=== PATIENT | female | born 1990 | race Caucasian/White ===

== ENCOUNTER → 2017-09-06 13:01 | Outpatient (CLI) | payer OTHER, SELFPAY ==
--- NOTE | 2017-09-06 | CER_PTH ---
PATIENT: [facility]AL [id number] AGE/SX: 34/F ROOM: RE09/06/[address]: Dr. Emani Lind MD : 1990 BED: DIS: SPEC #: [id number] RECD: 09/06/17 14:46 STATUS: CLIFFORD REQ #: [id number] LINDA: 09/06/17 00:[address]: Emani Oneal DEPT: SURGICAL PATHOLOGY RECD BY: Lincoln Ortiz ENTERED: 09/06/17 14:46 SP TYPE: CERV OTHR DR: Dr. Reed Sierra MD Tissues: Uterine cervix, NOS Procedures: Surgery Specimen Level IV Comments: @ Originally on account #[id number] Req #[id number] HEADER OPERATION: ECC PRE-OP DIAGNOSIS: MARVA III S/P LEEP, positive margins 04/2017 TISSUE SUBMITTED: ECC MICROSCOPIC DIAGNOSIS Endocervix, curettings: Detached fragments of squamous mucosa with focal changes suspicious for HPV cytopathic effect. AM:jamey 09/07/17 COMMENT Results from immunohistochemistry ([id number]) for surrogate HPV marker (p16) will be reported separately. MICROSCOPIC DESCRIPTION Slides are reviewed. GROSS DESCRIPTION Received in fixative is one container labeled with the patient's name and designated ECC. The specimen consists of multiple irregular fragments of banuelos mucoid tissue that in aggregate measure 1 x 0.2 x 0.1 cm. The specimen is totally submitted in one cassette. / SJ:jamey 09/06/17 TC:5 CPT: 25479
--- NOTE | 2017-09-06 | IMM_PTH ---
PATIENT: ANISH PASCAL LOC: [facility] U#:[id number] AGE/SX: 34/F ROOM: RE09/06/[address]: Dr. Emani Lind MD : 1990 BED: DIS: SPEC #: [id number] RECD: 09/07/17 10:38 STATUS: CLIFFORD REQ #: [id number] LINDA: 09/06/17 00:[address]: Emani Oneal DEPT: IMMUNOHISTOCHEMISTRY RECD BY: Summer Hamilton ENTERED: 09/07/17 10:39 SP TYPE: IMMUNO OTHR DR: Dr. Reed Sierra MD Tissues: Endocervical Procedures: p16 (initial) KI-67 (add) Comments: @ Originally on account #[id number] Req #[id number] PHYSICIAN & INSTITUTION [place] [id number] SPECIMEN INFORMATION: Tissue Source: [facility] Clinical Info: MARVA III status post LEEP Specimen Number: [id number] CPT code: 60475, 75939 METHODOLOGY: Deparaffinized sections of prefer/formalin-fixed tissue or PAP/DQ stained slides are incubated with monoclonal/polyclonal antibodies/oligonucleotide probes. Localization is made via biotin free immunoperoxidase method. Appropriate controls are performed and reacted as expected. Results on target cell population are indicated in the following table: RESULTS: ANTIBODY / CLONE RESULT P16 (E6H4) negative Ki-67 (30-9) positive, low, focal These tests were developed and their performance characteristics determined by [facility]. They may not have been cleared or approved by the U.S. Food and Drug Administration. The FDA has determined that such clearance or approval is not necessary. INTERPRETATION: ECC: Suspicious for focal HPV change. AM:jamey 09/07/17
[2017-09-11 11:33] LABS: HPV Reflexed? NOT INDICATED
== END ==
PROVIDERS: Visit Provider Obstetrics & Gynecology
DX: Z12.4 Encounter for screening for malignant neoplasm of cervix (principal); Z87.410 Personal history of cervical dysplasia
CPT/HCPCS: 88175; 88305; 88341; 88342; G0145

== ENCOUNTER → 2017-09-21 10:12 | Outpatient (CLI) | payer OTHER, SELFPAY ==
[2017-09-21 11:24] LABS: Glucose 91 mg/dL (74-106)
== END ==
PROVIDERS: Family Provider Family Medicine; PCP Family Medicine; Visit Provider Obstetrics & Gynecology
DX: E74.39 Other disorders of intestinal carbohydrate absorption (principal); Z68.43 Body mass index [BMI] 50.0-59.9, adult
CPT/HCPCS: 36415; 82947; 83525

== ENCOUNTER → 2018-04-13 11:30 | Outpatient (CLI) | payer OTHER, SELFPAY ==
--- NOTE | 2018-04-13 | IMM_PTH ---
PATIENT: ANISH PASCAL LOC: [facility] U#:[id number] AGE/SX: 34/F ROOM: RE04/13/[address]: Dr. Emani Lind MD : 1990 BED: DIS: SPEC #: [id number] RECD: 04/14/18 13:52 STATUS: CLIFFORD REQ #: [id number] LINDA: 04/13/18 00:[address]: Emani Oneal DEPT: IMMUNOHISTOCHEMISTRY RECD BY: Summer Hamilton ENTERED: 04/14/18 13:53 SP TYPE: IMMUNO OTHR DR: Dr. Reed Sierra MD Tissues: Endocervical Procedures: p16 (initial) KI-67 (add) PHYSICIAN & INSTITUTION [place] [address] SPECIMEN INFORMATION: Tissue Source: [facility] Clinical Info: MARVA I, II and III Specimen Number: [id number] CPT code: 31686, 98420 METHODOLOGY: Deparaffinized sections of prefer/formalin-fixed tissue or PAP/DQ stained slides are incubated with monoclonal/polyclonal antibodies/oligonucleotide probes. Localization is made via biotin free immunoperoxidase method. Appropriate controls are performed and reacted as expected. Results on target cell population are indicated in the following table: RESULTS: ANTIBODY / CLONE RESULT P16 (E6H4) negative Ki-67 (30-9) negative These tests were developed and their performance characteristics determined by [facility]. They may not have been cleared or approved by the [place].S. Food and Drug Administration. The FDA has determined that such clearance or approval is not necessary. INTERPRETATION: ECC: Benign quamous mucosal tissue. No evidence of dysplasia. AM:jamey 04/17/18
--- NOTE | 2018-04-13 | CER_PTH ---
PATIENT: ANISH [facility]ASCAL [id number] AGE/SX: 34/F ROOM: RE04/13/[address]: Dr. Emani Lind MD : 1990 BED: DIS: SPEC #: [id number] RECD: 04/13/18 14:29 STATUS: CLIFFORD AVTAR #: [id number] LINDA: 04/13/18 00:[address]: Emani Oneal DEPT: SURGICAL PATHOLOGY RECD BY: Lincoln Ortiz ENTERED: 04/13/18 14:29 SP TYPE: CERV OTHR DR: Dr. Reed Sierra MD Tissues: Uterine cervix, NOS Procedures: Surgery Specimen Level IV HEADER OPERATION: ECC PRE-OP DIAGNOSIS: Colposcopy, MARVA I, II and III status post LEEP with positive margins TISSUE SUBMITTED: ECC MICROSCOPIC DIAGNOSIS Endocervix, curettings: Detached strips and fragments of superficial squamous mucosa. No evidence of dysplasia. AM:jamey 04/14/18 COMMENT Results from immunohistochemistry ([id number]) for surrogate HPV marker (p16) will be reported separately. MICROSCOPIC DESCRIPTION Slides are reviewed. GROSS DESCRIPTION Received in fixative is one container labeled with the patient's name and designated ECC. The specimen consists of multiple irregular fragments of light banuelos soft tissue that in aggregate measure 1 x 0.5 x <0.1 cm. The specimen is totally submitted in one cassette. / AM:jamey 04/13/18 TC:4 CPT: 49581
[2018-04-17 13:38] LABS: HPV Reflexed? NOT INDICATED
== END ==
PROVIDERS: Family Provider Family Medicine; PCP Family Medicine; Referring Provider Obstetrics & Gynecology; Visit Provider Obstetrics & Gynecology
DX: Z12.4 Encounter for screening for malignant neoplasm of cervix (principal); Z87.42 Personal history of other diseases of the female genital tract
CPT/HCPCS: 88175; 88305; 88341; 88342; G0145

== ENCOUNTER → 2019-04-17 13:35 | Outpatient (CLI) | payer OTHER, SELFPAY ==
[2019-04-20 15:58] LABS: HPV Reflexed? NOT INDICATED
== END ==
PROVIDERS: Visit Provider Obstetrics & Gynecology
DX: Z12.4 Encounter for screening for malignant neoplasm of cervix (principal)
CPT/HCPCS: 88175; G0145

== ENCOUNTER → 2019-08-23 | Outpatient (CLI) | payer OTHER, SELFPAY ==
[2019-08-23 15:22] LABS: Chlamydia Trachomatis by PCR Negative (Negative); Neisserai gonorrhoeae by PCR Negative (Negative); Probe Check PASS; Sample Adequacy Control PASS; Specimen Processing Control PASS
== END | disposition home or self-care (01) ==
LOC: LABSPEC 10:36
PROVIDERS: Visit Provider Obstetrics & Gynecology
DX: Z11.3 Encounter for screening for infections with a predominantly sexual mode of transmission (principal)
CPT/HCPCS: 87491; 87591

== ENCOUNTER → 2020-03-05 15:30 | Outpatient (CLI) | payer OTHER, SELFPAY ==
[2020-03-05 18:12] LABS: Hematocrit 45.2 % (37-47); Hemoglobin 14.1 g/dL (12.0-15.0); Mean Corp Hgb Conc 31.2 g/dL (32-36); Mean Corpuscular Hgb 28.3 pg (27.0-32.0); Mean Corpuscular Volume 90.6 fL (81-99); Mean Platelet Vol. 11.9 fl (6.2-12.0); Platelet Count 381 K/mm3 (150-450); RBC Distribution Width CV 14.4 % (11.6-14.6); RBC Distribution Width SD 47.3 fl (35.1-43.9); Red Blood Count 4.99 M/mm3 (4.2-5.4); White Blood Count 10.8 K/mm3 (4.4-11.0)
[2020-03-05 18:46] LABS: ALB/GLOB Ratio 0.8 RATIO (0.9-2.4); AST(SGOT) 21 U/L (15-37); Alanine Aminotransfer ALT/SGPT 44 U/L (13-56); Albumin, Serum 3.8 g/dL (3.2-5.0); Alkaline Phosphatase 133 U/L (45-117); Anion Gap 7 (5-15); BUN 8 mg/dL (7-18); BUN/Creat Ratio 10.6 RATIO (10-20); Calcium,Total 9.2 mg/dL (8.5-10.1); Chloride 107 mmol/L (98-107); Creatinine, Serum 0.76 mg/dL (0.55-1.02); EST Glomerular Filtration Rate 95 mL/min (>60); Est Glom Filt Rate - Afr Amer 115 mL/min (>60); Globulin 4.6 g/dL (2.2-4.2); Glucose 85 mg/dL (74-106); Luteinizing Hormone 8.4 mIU/mL; Potassium 3.8 mmol/L (3.5-5.1); Protein, Total 8.4 g/dL (6.4-8.2); Sodium Level 139 mmol/L (136-145); Thyroid Stim Hormone (TSH) 1.85 uIU/mL (0.358-3.74)
== END ==
PROVIDERS: PCP Family Medicine; Referring Provider Family Medicine; Visit Provider Family Medicine
DX: N92.6 Irregular menstruation, unspecified (principal); R73.01 Impaired fasting glucose
CPT/HCPCS: 36415; 80053; 83001; 83002; 84443; 85027

== ENCOUNTER → 2020-05-21 15:07 | Outpatient (CLI) | payer BC, SELFPAY ==
[2020-05-21 17:35] LABS: Hemoglobin A1c 5.7 % (3.8-5.6)
[2020-05-26 17:27] LABS: HPV APTIMA, High Risk Negative (Negative)
== END ==
PROVIDERS: PCP Family Medicine; Visit Provider Obstetrics & Gynecology
DX: R63.5 Abnormal weight gain (principal); Z12.4 Encounter for screening for malignant neoplasm of cervix
CPT/HCPCS: 36415; 83036; 87624; 88175; G0145

== ENCOUNTER → 2020-11-06 16:25 | Outpatient (CLI) | payer BC, SELFPAY ==
--- NOTE | 2020-11-06 16:30 | RAD_ITS ---
STUDY: X-RAY - ACUTE ABDOMINAL SERIES REASON FOR EXAM: Female, 30 years old. RUQ PAIN TECHNIQUE: Single view of the chest. Supine, 5 view(s) of the abdomen were obtained. COMPARISON: None. FINDINGS: The lungs are clear and expanded. Normal size heart. Normal mediastinum and [place]. Normal visualized pulmonary arteries. Normal visualized aortic arch and descending thoracic aorta. There is a non-specific bowel gas pattern. The soft tissue structures of the abdomen and pelvis are unremarkable. Normal visualized osseous structures. RAD/Abd Inc Decub and/or Erect IMPRESSION: Normal x-ray examination of the chest, abdomen, and pelvis. Electronically Signed: Kris García MD at 16:49 EDT , Service support ,
[2020-11-06 17:47] LABS: Absolute Lymphocyte Count 4.03 X10^3/uL (0.83-4.51); Absolute Neutrophil Count 5.4 X10^3/uL (2.0-7.7); Basophil# 0.06 X10^3/uL; Basophil% 0.6 % (0-1); Eosinophil# 0.26 X10^3/uL; Eosinophils% 2.5 % (0-5); Hematocrit 43.6 % (37-47); Hemoglobin 13.8 g/dL (12.0-15.0); Lymphocyte # 4.03 X10^3/ul (0.83-4.51); Lymphocyte % 39.5 % (19-41); Mean Corp Hgb Conc 31.7 g/dL (32-36); Mean Corpuscular Hgb 28.1 pg (27.0-32.0); Mean Corpuscular Volume 88.8 fL (81-99); Mean Platelet Vol. 11.9 fl (6.2-12.0); Monocyte# 0.44 X10^3/uL; Monocyte% 4.3 % (0-10); NRBC Flagged by Analyzer 0 % (0-5); Neutrophil # 5.39 X10^3/uL (2.7-7.7); Neutrophil % 52.9 % (47-70); Platelet Count 391 K/mm3 (150-450); RBC Distribution Width CV 14.6 % (11.6-14.6); RBC Distribution Width SD 47.5 fl (35.1-43.9); Red Blood Count 4.91 M/mm3 (4.2-5.4); White Blood Count 10.2 K/mm3 (4.4-11.0)
[2020-11-06 17:56] LABS: ALB/GLOB Ratio 0.8 RATIO (0.9-2.4); AST(SGOT) 15 U/L (15-37); Alanine Aminotransfer ALT/SGPT 35 U/L (13-56); Albumin, Serum 3.6 g/dL (3.2-5.0); Alkaline Phosphatase 114 U/L (45-117); Amylase 33 U/L (25-115); Anion Gap 6 (5-15); BUN 8 mg/dL (7-18); BUN/Creat Ratio 10.2 RATIO (10-20); Calcium,Total 9.3 mg/dL (8.5-10.1); Chloride 107 mmol/L (98-107); Creatinine, Serum 0.79 mg/dL (0.55-1.02); EST Glomerular Filtration Rate 91 mL/min (>60); Est Glom Filt Rate - Afr Amer 110 mL/min (>60); Globulin 4.4 g/dL (2.2-4.2); Glucose 102 mg/dL (74-106); Lipase 72 U/L (73-393); Potassium 3.6 mmol/L (3.5-5.1); Sodium Level 140 mmol/L (136-145)
[2020-11-06 18:00] LABS: Erythrocyte Sedimentation Rate 39 mm/hr (0-30)
[2020-11-08 15:13] LABS: HCG BETA-SUBUNIT QUANT. < 1 mIU/mL (.)
== END ==
PROVIDERS: PCP Family Medicine; Referring Provider Family Medicine; Visit Provider Family Medicine
DX: R10.11 Right upper quadrant pain (principal)
CPT/HCPCS: 74019; 80053; 82150; 83690; 84702; 85025; 85652

== ENCOUNTER → 2020-12-17 09:04 | Outpatient (CLI) | payer BC, SELFPAY ==
--- NOTE | 2020-12-17 09:48 | CT_ITS ---
STUDY: CT ABDOMEN AND PELVIS WITHOUT CONTRAST REASON FOR EXAM: Female, 30 years old. LEFT FLANK PAIN. Urinary urgency. History of prior cervical cancer. RADIATION DOSAGE (If Supplied By Facility): CTDIvol = ( 24.18 ) mGy, DLP = ( 1443.81 ) mGycm TECHNIQUE: Transaxial images were obtained from the dome of the diaphragm to the symphysis pubis without oral contrast, and without intravenous contrast. Sagittal and coronal images were reconstructed. Individualized dose optimization techniques were used for this CT. COMPARISON: None. FINDINGS: The visualized lung bases are unremarkable. Minimal pericardial thickening along the right side of the pericardium. There is decreased attenuation of the liver consistent with steatosis. Normal gallbladder and extrahepatic biliary system. Normal spleen. Normal pancreas. Normal bilateral adrenal glands. Normal right kidney. Mild degree of left hydronephrosis due to a 4.4 mm calculus in the proximal portion of the left ureter just distal to the ureteropelvic junction. Normal visualized stomach. Normal small intestine. Normal colon. The appendix is visualized and appears normal. Small lymph nodes are seen in the mesenteric fat in the right lower quadrant. Normal abdominal aorta. Normal inferior vena cava. There is borderline retroperitoneal lymphadenopathy with enlarged nodes no greater than 10mm in the short axis diameter. Normal urinary bladder. Normal abdominal wall. Normal osseous structures. CT/Abdomen/Pelvis without Cont IMPRESSION: 4.4 mm calculus in the proximal portion of the left ureter just distal to the ureteropelvic junction causing mild degree of left hydronephrosis. Fatty infiltration of the liver. Pericardial thickening along the right side of the pericardium. Electronically Signed: Chris Chiacs MD at 10:13 EDT , Service support ,
[2020-12-17 09:56] LABS: Absolute Lymphocyte Count 3.28 X10^3/uL (0.83-4.51); Absolute Neutrophil Count 4.8 X10^3/uL (2.0-7.7); Basophil# 0.03 X10^3/uL; Basophil% 0.3 % (0-1); Eosinophil# 0.16 X10^3/uL; Eosinophils% 1.8 % (0-5); Hematocrit 43.5 % (37-47); Hemoglobin 13.6 g/dL (12.0-15.0); Lymphocyte # 3.28 X10^3/ul (0.83-4.51); Lymphocyte % 37.3 % (19-41); Mean Corp Hgb Conc 31.3 g/dL (32-36); Mean Corpuscular Hgb 27.7 pg (27.0-32.0); Mean Corpuscular Volume 88.6 fL (81-99); Mean Platelet Vol. 11.4 fl (6.2-12.0); Monocyte# 0.48 X10^3/uL; Monocyte% 5.5 % (0-10); NRBC Flagged by Analyzer 0 % (0-5); Neutrophil # 4.81 X10^3/uL (2.7-7.7); Neutrophil % 54.8 % (47-70); Platelet Count 384 K/mm3 (150-450); RBC Distribution Width CV 14.2 % (11.6-14.6); RBC Distribution Width SD 45.8 fl (35.1-43.9); Red Blood Count 4.91 M/mm3 (4.2-5.4); White Blood Count 8.8 K/mm3 (4.4-11.0)
[2020-12-17 10:12] LABS: ALB/GLOB Ratio 0.9 RATIO (0.9-2.4); AST(SGOT) 21 U/L (15-37); Alanine Aminotransfer ALT/SGPT 40 U/L (13-56); Albumin, Serum 3.7 g/dL (3.2-5.0); Alkaline Phosphatase 119 U/L (45-117); Anion Gap 3 (5-15); BUN 11 mg/dL (7-18); BUN/Creat Ratio 12.5 RATIO (10-20); Calcium,Total 9.1 mg/dL (8.5-10.1); Chloride 105 mmol/L (98-107); Creatinine, Serum 0.88 mg/dL (0.55-1.02); EST Glomerular Filtration Rate 79 mL/min (>60); Est Glom Filt Rate - Afr Amer 96 mL/min (>60); Globulin 4.2 g/dL (2.2-4.2); Glucose 106 mg/dL (74-106); Potassium 3.6 mmol/L (3.5-5.1); Protein, Total 7.9 g/dL (6.4-8.2); Sodium Level 137 mmol/L (136-145)
== END ==
PROVIDERS: PCP Family Medicine; Visit Provider Family Medicine
DX: R10.9 Unspecified abdominal pain (principal); E66.01 Morbid (severe) obesity due to excess calories
CPT/HCPCS: 36415; 74176; 80053; 85025; 87077; 87086; 87088; 87186

== ENCOUNTER → 2021-03-05 14:33 | Outpatient (CLI) | payer BC, SELFPAY ==
[2021-03-05 17:53] LABS: ALB/GLOB Ratio 0.8 RATIO (0.9-2.4); AST(SGOT) 18 U/L (15-37); Alanine Aminotransfer ALT/SGPT 32 U/L (13-56); Albumin, Serum 3.7 g/dL (3.2-5.0); Alkaline Phosphatase 121 U/L (45-117); Anion Gap 7 (5-15); BUN 8 mg/dL (7-18); BUN/Creat Ratio 9.8 RATIO (10-20); Calcium,Total 9.2 mg/dL (8.5-10.1); Chloride 107 mmol/L (98-107); Cholesterol 222 mg/dL (200); Creatinine, Serum 0.82 mg/dL (0.55-1.02); EST Glomerular Filtration Rate 87 mL/min (>60); Est Glom Filt Rate - Afr Amer 105 mL/min (>60); Globulin 4.8 g/dL (2.2-4.2); Glucose 92 mg/dL (74-106); High Density Lipoprotein 47 mg/dL; Potassium 3.8 mmol/L (3.5-5.1); Protein, Total 8.5 g/dL (6.4-8.2); Sodium Level 138 mmol/L (136-145); Thyroid Stim Hormone (TSH) 2.02 uIU/mL (0.358-3.74); Triglycerides 152 mg/dL; Very Low Density Lipoprotein 30 mg/dL (5-40)
== END ==
PROVIDERS: PCP Family Medicine; Referring Provider Family Medicine; Visit Provider Family Medicine
DX: R73.01 Impaired fasting glucose (principal)
CPT/HCPCS: 36415; 80053; 80061; 84443

== ENCOUNTER → 2021-03-09 09:50 | Outpatient (CLI) | payer BC, SELFPAY ==
[2021-03-09 12:45] LABS: Microalbumin,Random Urine 12.2 mg/L (NO RANGE EST.)
[2021-03-12 14:09] LABS: PROEL- A/G Ratio 1.1 (0.7-1.7); PROEL- Albumin 3.9 g/dL (2.9-4.4); PROEL- Alpha-1 Globulin 0.3 g/dL (0.0-0.4); PROEL- Alpha-2 Globulin 0.9 g/dL (0.4-1.0); PROEL- Beta Globulin 1.3 g/dL (0.7-1.3); PROEL- Gamma Globulin 1.2 g/dL (0.4-1.8); PROEL- Globulin, Total 3.6 g/dL (2.2-3.9); PROEL- TOTAL PROTEIN 7.5 g/dL (6.0-8.5); PROELU- Alpha-1-Globulin,Ur 4.4 % (.); PROELU- Alpha-2-Globulin,Ur 23.5 % (.); PROELU- Beta Globulin, Ur 27.7 % (.); PROELU- Gamma Globulin, Ur 14.4 % (.)
== END ==
PROVIDERS: PCP Family Medicine; Referring Provider Family Medicine; Visit Provider Family Medicine
DX: E88.09 Other disorders of plasma-protein metabolism, not elsewhere classified (principal)
CPT/HCPCS: 36415; 82043; 84165; 84166